=== PATIENT | male | born 1985 | race Caucasian/White ===

== ENCOUNTER 2020-07-21 13:35 | Outpatient (CLI) | payer OTHER, MEDICARE ==
[2020-07-21 14:21] VITALS: BP 127/84
--- NOTE | 2020-07-21 14:21 | SLEEP CARE CONSULTATION ---
Information from patient questionnaire entered by Mariel Abbasi. I have reviewed and concur with the information entered by Mariel Abbasi. This document represents the service I personally performed and the decisions made by me, Nimisha York ARNP. History of Present Illness Service Date and Time: 07/21/2020 1335 Reason for Visit: New patient Chief Complaint: reports: Unrefreshed sleep, Snoring, Excessive daytime sleepiness, Frequent awakenings at night. denies: Observed pauses in breathing Date of Onset: not very long Usual bedtime: varies 10-11:30 pm Time it takes to fall asleep: a couple hours Snores at night: Yes (not very much) Observed to quit breathing while asleep: No Sleeps alone due to snoring: Yes (lives with mom and dad) Number of times waking at night: varies, about 2 times Reasons for waking at night: reports: Snoring, Gasping for air, Bathroom, Other (also to get a drink) Toss, Turn, or Twitch while sleeping: No Recalls having dreams: Yes (sometimes) Usually gets out of bed at: varies, but 5 am on Mondays Feels refreshed in the morning: Yes Morning headache: No Sleepy or fatigued during the day: Yes Ever fallen asleep while driving: No (doesn't drive) Takes day naps: Yes (daily, time varies) Dreams during day naps: Yes (sometimes) Prior sleep studies: No Additional HPI information: I had the pleasure of seeing KENN HERNANDEZ today regarding the possibility of him having a sleep disorder. His current complaints are frequent night awakenings. He states that he sometimes can go back to sleep after waking up because he is still tired. He appears to be developmentally disabled and required repeated questions/explanations during the visit today. He is very cooperative with exam and history. He has a history of asthma but denies other medical problems. He states that both parents snore and are using machines at night for sleep apnea. - Parasomnia Symptoms Ever been unable to move upon waking from sleep: No Walks in sleep: Yes Talks in sleep: Yes Ever acted out dreams in sleep: No Ever felt weak in the knees when startled or emotional: No Bothered by creepy, crawly, restless sensations in legs: No Problems with memory or concentration: No Subjective Initial [place] Sleepiness Scale score: 8 (in 2019) Past Medical History Past Medical History: reports: Asthma. denies: Hypertension, Diabetes, Arrythmia Social History The patient's occupation is disabled. Patient is Single and lives in [place]. Have you smoked in the past 12 months: No Alcohol use: No Caffeine use: Yes Caffeine amount and frequency: 2-3 drinks a day Family History Family history of sleep disordered breathing: Yes (mom and dad) Family Hx Sleep Apnea: Mother: Snoring, Sleep apnea - Treated, Father: Snoring, Sleep apnea - Treated Allergies and Home Medications Drug allergies reviewed: Yes (NKDA) Home medication list reviewed: Yes (thyroid pill, losartan) Review of Systems Cardiovascular: denies: high blood pressure, irregular heart rate or pulse Respiratory: reports: shortness of breath (from asthma), wheeze (from asthma) Gastrointestinal: reports: heartburn, diarrhea (sometimes) Neurological: denies: headaches, head trauma Psychiatric: denies: anxiety, depression Ear/Nose/Throat: reports: wisdom teeth removed. denies: nasal congestion, sinus problems, nose bleeds, dry mouth/throat, injury to nose, tonsillectomy Endocrine: reports: sluggishness, too hot or cold Immunologic: reports: sneezing, rash, itching, allergies to food or environment (seafood) Physical Exam Blood Pressure: 127/84 Cuff size: wrist Heart Rate: 89 O2 Saturation: 98 Height: 5 ft 10 in Weight: 279 lb Body Mass Index: 40.0 BMI Classification: Morbidly Obese Neck circumference: 18.25 (inches) Nostrils: patent to airflow Mouth and throat: narrow oropharynx Uvula visualization: 25% Mallampati Class III Tongue: enlarged in size with teeth barfield on lateral edges Tonsils: 2+ Chin and jaw: normal size and position Heart: regular rate and rhythm Lungs: clear bilaterally Impression and Plan 1. Suspected Obstructive Sleep Apnea-Hypopnea Syndrome, as suggested by a history of loud and irregular snoring, frequent awakening during the night, unrefreshed sleep, cognitive impairment, and excessive daytime sleepiness. Patient appears to be developmentally disabled and would prefer to do a HST where his parents can help him with his test. I recommend proceeding to po lysomnography to confirm the diagnosis and to assess severity. If the patient has significant sleep disordered breathing, a manual CPAP titration study will also be performed to find the optimal treatment pressure. I informed the patient of what the sleep studies involve and after some discussion, obtained agreement to proceed. The pathophysiology of obstructive sleep apnea-hypopnea syndrome was discussed with the patient and health risks of cardiovascular and cerebrovascular disease if not treated. Patient doesn't drive. * Schedule polysomnography/HST. * Avoid sedative and muscle relaxant around bedtime. * Attempt to lose weight. * Review instructions provided by trained office staff on how to prepare for the sleep study. * Return for follow-up after sleep study completed. Visit Type: In Office Time Spent with Patient (minutes): 35 Provider Statement: I spent 100% of the Face to Face Visit with the patient with greater than 50% spent counseling the patient and coordination of care.
== END 2020-07-21 13:36 | disposition home or self-care (01) ==
LOC: SC 13:35
PROVIDERS: ATTEND Nurse Practitioner Family
DX: G47.10 Hypersomnia, unspecified (principal); R41.89 Other symptoms and signs involving cognitive functions and awareness; G47.8 Other sleep disorders; R06.83 Snoring; E66.01 Morbid (severe) obesity due to excess calories; Z68.41 Body mass index [BMI] 40.0-44.9, adult
CPT/HCPCS: 99203; 99212

== ENCOUNTER 2020-09-14 07:52 | Outpatient (CLI) | payer OTHER, MEDICARE | END 2020-09-14 07:53 | disposition home or self-care (01) | LOC: SC 07:52 | PROVIDERS: ATTEND Nurse Practitioner Family | DX: G47.8 Other sleep disorders (principal); R06.83 Snoring; E66.9 Obesity, unspecified; Z68.41 Body mass index [BMI] 40.0-44.9, adult | CPT/HCPCS: 95806 ==

== ENCOUNTER 2020-09-21 15:14 | Outpatient (CLI) | payer OTHER, MEDICARE ==
--- NOTE | 2020-09-21 15:42 | SLEEP CARE CONSULTATION ---
Information from patient questionnaire entered by Mariel Abbasi. I have reviewed and concur with the information entered by Mariel Abbasi. This document represents the service I personally performed and the decisions made by , Nimisha York ARNP. History of Present Illness Service Date and Time: 09/21/2020 1514 Initial [place] Sleepiness Scale score: 8 (in 2019) Current [place] Sleepiness Scale score: 8 Additional HPI information: KENN HERNANDEZ returns for follow up and results of the recently performed home sleep study. The patient was informed of the following findings: no significant sleep disordered breathing with an average AHI of 2.9 and dashawn oxygen saturation of 84%. He had 5.0 supine and 1.52 non-supine AHIs. This was not diagnostic due to loss of signal during the HST. Recommendation for an in lab test. I explained the pathophysiology behind obstructive sleep apnea. Patient does not have sleep apnea and was advised how weight gain could increase the risk of developing sleep apnea in the future. I strongly encouraged the patient to lose weight. Sleep Study - Results Type of Sleep Study: Home sleep study Prior sleep studies: No Polysomnography/Home Sleep Study results: Physician Impression: The quality of the study is poor due to frequent loss of air flow and pulse oximetry signals.. The length of the study is adequate (> 240 minutes). Please also see the tabulated and graphic data. 1. No significant sleep disordered breathing, with an AHI of 2.9/hr and dashawn SaO2 of 84%. During the study, the patient had 9 apneas (6 obstructive, 3 central, 0 mixed) and 4 hypopneas. The longest episode lasted 62.0 seconds. The respiratory events occurred more frequently during supine sleep (supine AHI was 5.0 and non-supine, 1.52). 2. Hypoxemia (ICD-10 R09.02), mild, with the lowest oxygen saturation of 84 % and 7.7 minutes with SaO2 under 90%. Baseline oxygen saturation was normal (Average oxygen saturation was 94%). Recommendation: Due to the significant data loss, this test is non-diagnostic. An in-laboratory polysomnography should be ordered. Allergies and Home Medications Home medication list reviewed: Yes (no changes) Review of Systems Review of systems same as previous: Yes (no changes) Physical Exam Heart Rate: 87 O2 Saturation: 96 Height: 5 ft 10 in Weight: 285 lb Body Mass Index: 40.8 BMI Classification: Morbidly Obese Impression and Plan 1. Suspected Obstructive Sleep Apnea-Hypopnea Syndrome, as suggested by a history of loud and irregular snoring, frequent awakening during the night, unrefreshed sleep, cognitive impairment, and excessive daytime sleepiness. Patient is developmentally delayed and repeats questions but seem to understand. He states he lives by himself. His HST was not diagnostic because we lost signal and we need to have him repeat the test in lab where a civilian technician can ensure the leads stay on during the study. I recommend proceeding to polysomnography to confirm the diagnosis and to assess severity. I reviewed with patient and obtained agreement to proceed. I also encouraged him to have his mother come into the office at his next visit. The pathophysiology of obstructive sleep apnea-hypopnea syndrome was discussed with the patient and health risks of cardiovascular and cerebrovascular disease if not treated. * Schedule polysomnography +- manual CPAP titration study and return in 1-2 weeks after the study to discuss result and initiate therapy. * Patient does not drive * Avoid sedative and muscle relaxant around bedtime. * Attempt to lose weight. * Review instructions provided by trained office staff on how to prepare for the sleep study. * Return for follow-up after sleep study completed. Counseling Topics: Weight loss health impact Visit Type: In Office Time Spent with Patient (minutes): 19 Provider Statement: I spent 100% of the Face to Face Visit with the patient with greater than 50% spent counseling the patient and coordination of care.
== END 2020-09-21 15:15 | disposition home or self-care (01) ==
LOC: SC 15:14
PROVIDERS: ATTEND Nurse Practitioner Family
DX: G47.10 Hypersomnia, unspecified (principal); R41.89 Other symptoms and signs involving cognitive functions and awareness; G47.8 Other sleep disorders; R06.83 Snoring; E66.01 Morbid (severe) obesity due to excess calories; Z68.41 Body mass index [BMI] 40.0-44.9, adult
CPT/HCPCS: 99212

== ENCOUNTER 2021-04-27 13:51 | Outpatient (CLI) | payer OTHER, MEDICARE ==
--- NOTE | 2021-04-27 14:52 | SLEEP CARE CONSULTATION ---
Information from patient questionnaire entered by Mariel Abbasi. I have reviewed and concur with the information entered by Mariel Abbasi. This document represents the service I personally performed and the decisions made by me, Nimisha York ARNP. History of Present Illness Service Date and Time: 04/27/2021 1351 Accompanied by: Mother Initial [place] Sleepiness Scale score: 8 (in 2019) Current [place] Sleepiness Scale score: 5 Additional HPI information: KENN HERNANDEZ returns with his mother for follow up and results of the recently performed polysomnography. Patient was unable to sleep more than 82.8 minutes during the night. Mother states he is very itchy and usually sleeps very restless during the night. They told her that he should return for a another sleep study to get more sleep but that he should probably have a sleep aid for the test. Sleep Study - Results Type of Sleep Study: Polysomnography ([facility]) Prior sleep studies: Yes Year and Where: 2020([facility]) - [facility] Sleep Polysomnography/Home Sleep Study results: This nocturnal polysomnographic sleep study showed no significant snoring. The apnea/hypopnea index was 6.5 and the sleep efficiency was 17.8%. The PLM index was 85.5. The sleep study is consistent with mild obstructive sleep apnea with significant desaturation events down to 80%. Given the history of chronic insomnia and the very low sleep efficiency which he reports as normal for him, would recommend the patient undergo a trial of auto CPAP or return to the sleep lab for a full-night CPAP titration study. Alternative therapies, including dental appliances and surgical procedures could also be considered. Attaining optimal weight is recommended. The EKG showed no significant arrhythmias. Patient only slept for 82.8 minutes for this study and needs to repeat study with a sleep aid to get more time for a more accurate measurement. Allergies and Home Medications Home medication list reviewed: Yes (albuterol sulfate inhaler, nebulizer too) Review of Systems Review of systems same as previous: Yes (no changes) Physical Exam Heart Rate: 87 O2 Saturation: 96 Height: 5 ft 10 in Weight: 281 lb Body Mass Index: 40.3 BMI Classification: Morbidly Obese Impression and Plan 1. Suspected Obstructive Sleep Apnea-Hypopnea Syndrome, as suggested by a history of loud and irregular snoring, frequent awakening during the night, unrefreshed sleep, cognitive impairment, and excessive daytime sleepiness. Patient's last study only had 82.8 minutes of sleep time. His study did show an average AHI of 6.5 which was interpreted as mild obstructive sleep apnea but he did not have an adequate amount of time of sleep during the study. It was recommended that he repeat the study with a sleep aid to help him to sleep l onger. His mother agrees. I will write a prescription for 5 mg of zolpidem for the night of his sleep study. I will reorder his sleep study and see him back here once he has completed that PSG. Patient and mother agreed to plan. Patient was encouraged to lose weight for their overall health and to reduce apneas. * Schedule polysomnography +- manual CPAP titration study and return in 1-2 weeks after the study to discuss result and initiate therapy. * Avoid long distance driving or driving when feeling sleepy. * Avoid alcohol, sedative and muscle relaxant around bedtime. * Attempt to lose weight. * Review instructions provided by trained office staff on how to prepare for the sleep study. * Return for follow-up after sleep study completed. Counseling Topics: Weight loss health impact Other Participants: Other (Mother) Time Spent with Patient (minutes): 20
== END 2021-04-27 13:52 | disposition home or self-care (01) ==
LOC: SC 13:51
PROVIDERS: ATTEND Nurse Practitioner Family
DX: G47.10 Hypersomnia, unspecified (principal); R06.83 Snoring; G47.8 Other sleep disorders; R41.89 Other symptoms and signs involving cognitive functions and awareness
CPT/HCPCS: 99212; 99213

== ENCOUNTER 2021-08-18 20:30 | Outpatient (CLI) | payer OTHER, MEDICARE | END 2021-08-18 20:31 | disposition home or self-care (01) | LOC: SC 20:30 | PROVIDERS: ATTEND Nurse Practitioner Family | DX: G47.33 Obstructive sleep apnea (adult) (pediatric) (principal); G47.61 Periodic limb movement disorder | CPT/HCPCS: 95810 ==

== ENCOUNTER 2021-09-01 10:20 | Outpatient (CLI) | payer OTHER, MEDICARE ==
[2021-09-01 10:57] VITALS: BP 149/92
--- NOTE | 2021-09-01 10:57 | SLEEP CARE CONSULTATION ---
Information from patient questionnaire entered by Eric Torres MA. I have reviewed and concur with the information entered by Eric Torres MA. This document represents the service I personally performed and the decisions made by , Nimisha York ARNP. History of Present Illness Service Date and Time: 09/01/2021 1020 Initial [place] Sleepiness Scale score: 8 (in 2019) Current [place] Sleepiness Scale score: 16 (2021) Additional HPI information: KENN HERNANDEZ returns with mother for follow up and results of the recently performed polysomnography. I explained the pathophysiology behind obstructive sleep apnea. We then spent q uite a bit of time discussing different treatment options. For mild obstructive sleep apnea, surgery and oral appliance are alternatives to nasal CPAP therapy but in moderate or severe cases, nasal CPAP is the most effective and reliable treatment. I reviewed the impact of weight changes on sleep apnea and strongly recommended losing weight. After some discussion, the patient opted to go with the nasal CPAP therapy. Nasal autoCPAP set at 4-15 cmH20 will be ordered with rationale explained. A manual titration study will be ordered if unable to find optimal pressure with office adjustments. I explained how CPAP machine works and what to expect when using the machine. Using CPAP every night in order to get used to it was emphasized. Patient advised to put CPAP mask on before getting into bed so as not to fall asleep without CPAP. To assist acclimation to CPAP use, it could also be used for a short time during day while reading or watching TV. The patient was instructed to call the CPAP supplier to discuss any mechanical problem that may occur. If the mask given is uncomfortable or is difficult to keep on through the night even with adjustment, contact the CPAP supplier as many will replace with another mask style if notified before 30 days. If snoring or perceives is not getting enough air or too much air from the machine, notify this office. Patient does not drink alcohol and does not drive. Sleep Study - Results Type of Sleep Study: Polysomnography ([facility]) Prior sleep studies: Yes Year and Where: 2020(T) - [facility] Sleep Polysomnography/Home Sleep Study results: IMPRESSION: The quality of the study is good. The patient had poor sleep efficiency due to sleep onset insomnia and frequent awakenings throughout the night. The sleep architecture was abnormal for sleep fragmentation and reduced amount of time spent in REM and slow wave sleep (N3). Respiratory monitoring showed mild obstructive sleep apnea-hypopnea (AHI = 9.5) associated with frequent arousals, oxyhemoglobin desaturation but no significant hypoxia (dashawn oxygen saturation of 90%). The patient did not sleep supine during this study (supine AHI = 0 ; nonsupine = 9.78). Snore was light to moderate in intensity. There was moderate periodic leg movement of sleep contributing to the sleep fragmentation.. Cardiac rhythm was normal sinus rhythm without significant arrhythmia. No abnormal behavior (parasomnia) observed during the night. Allergies and Home Medications Home medication list reviewed: Yes (no changes) Review of Systems Review of systems same as previous: Yes (no changes) Physical Exam Vital signs obtained and entered by: WILMAR MOSQUERA Blood Pressure: 149/92 (RIGHT, PULSE 83) Cuff size: wrist Heart Rate: 87 O2 Saturation: 98 (WITH 2 MASKS) Height: 5 ft 10 in Weight: 283 lb (CLOTHES) Body Mass Index: 40.6 BMI Classification: Morbidly Obese Impression and Plan 1. Obstructive Sleep Apnea-Hypopnea Syndrome, mild, with lowest oxygen saturation of 90%. Obviously this is the cause of the patients symptoms of unrefreshed sleep, and excessive daytime sleepiness. Positive pressure therapy could benefit asthma. As mentioned above, the patient will be started on nasal autoCPAP therapy with pressure set at 4-15 cmH2O. A manual titration study will be completed if unable to find optimal treatment pressure with office adjustments. Compliance guidelines also reviewed. A copy of compliance guidelines will be given for reference at check out. 2. Periodic limb movement, moderate, that did contribute to fragmentation patients sleep. Periodic limb movement of sleep (PLMS) is characterized by episodes of repetitive limb movements that occur during sleep and usually involve the lower limbs. The etiology is unknown but can be associated with restless leg syndrome (RLS), low serum ferritin level below 50 to 75mcg / L, neuropathy, spinal cord diseases, kidney disease, rheumatological disorders, narcolepsy, obstructive sleep apnea, and REM sleep behavior disorder. Sleep hygiene methods can also improve sleep as well as lifestyle changes such as regular exercise. Patient was advised that no treatment is needed at this time. If symptoms increase, then further evaluation is indicated. * Nasal auto CPAP therapy, pressure at 4-15 cm H2O. * Attempt to lose weight. * Avoid alcohol consumption near bedtime. * Avoid supine sleep until using CPAP. * The patient is again cautioned about driving until sleepiness completely resolves. * Return one month after CPAP obtained. I will assess response to therapy and compliance at that time. Counseling Topics: Weight loss health impact Visit Type: In Office Other Participants: Other (Mother) Time Spent with Patient (minutes): 20 Provider Statement: I spent 100% of the Face to Face Visit with the patient with greater than 50% spent counseling the patient and coordination of care.
== END 2021-09-01 10:21 | disposition home or self-care (01) ==
LOC: SC 10:20
PROVIDERS: ATTEND Nurse Practitioner Family
DX: G47.33 Obstructive sleep apnea (adult) (pediatric) (principal); G47.61 Periodic limb movement disorder; E66.01 Morbid (severe) obesity due to excess calories; Z68.41 Body mass index [BMI] 40.0-44.9, adult
CPT/HCPCS: 99212; 99213

== ENCOUNTER 2021-11-23 15:50 | Outpatient (CLI) | payer OTHER, MEDICARE ==
[2021-11-23 16:51] VITALS: BP 130/72
--- NOTE | 2021-11-23 16:51 | SLEEP CARE CONSULTATION ---
Information from patient questionnaire entered by Eric Quiñonez MA. I have reviewed and concur with the information entered by Eric Quiñonez MA. This document represents the service I personally performed and the decisions made by , Nimisha York ARNP. History of Present Illness Service Date and Time: 11/23/2021 1550 Previous diagnosis: Mild, Obstructive Sleep Apnea-Hypopnea Syndrome AHI: 9.5 Reason for follow up: first compliance (SET UP DATE 09/20/21, ) Equipment type: CPAP Equipment obtained from: [employer] Mask style: Full face Backup mask available: No (will keep old mask) Prior sleep studies: Yes Year and Where: 2020([facility] - [facility] Sleep Type of Sleep Study: Polysomnography ([facility]) HPI additional information: KENN HERNANDEZ was diagnosed to have mild, AHI 9.5, obstructive sleep apnea-hypopnea syndrome and returned today for CPAP therapy first compliance follow-up. Sleep Study - Results Type of Sleep Study: Polysomnography ([facility]) Prior sleep studies: Yes Year and Where: 2020([facility]) - [facility] Sleep CPAP Compliance Data - Data Reviewed with Patient Average duration of nightly device use: 2 HOURS 7 MINUTES Compliance rate %: 7 Current pressure setting (cmH2O): 4-15 (median 5.2, avg 10.8, max 11.9) Average residual AHI: 10.9 Central apnea: 5.5 Obstructive apnea: 0.0 Average large leak: 31.1 L/min Subjective Patient concerns: reports: mask discomfort, mask leak noise, other (water chamber heating up "too much"). denies: aerophagia, air blowing in eyes, condensation in mask/hose, nasal congestion, dry mouth, nose, throat, epistaxis Observed to snore while using device: No Current pressure setting perceived as: comfortable On therapy, patient: reports: sleeping better, more rested overall. denies: drowsiness while driving (doesn't drive) Initial [place] Sleepiness Scale score: 8 (in 2019) Current [place] Sleepiness Scale score: 21 Allergies and Home Medications Home medication list reviewed: Yes (no changes) Review of Systems Review of systems same as previous: Yes (no changes) Physical Exam Vital signs obtained and entered by: Adair QUIÑONEZ CMA AACT Blood Pressure: 130/72 (RESP 20, PULSE 89, LEFT,) Heart Rate: 92 O2 Saturation: 96 (PAPER) Height: 5 ft 10 in Impression and Plan 1. Obstructive Sleep Apnea-Hypopnea Syndrome, mild, with poor treatment compliance and fair apnea control. On CPAP therapy, the patient has better sleep quality and is more rested overall. Kenn is mentally disabled and comes in on his own. He tells me he puts on his mask every night and last night he wore it for 4 hours. I check his machine and it was 3 hours 57 minutes. The patients pressure will be changed to autoCPAP 10-12 cmH20 for elevation of residual AHI. Patient advised to contact me if pressure change is uncomfortable so that it can be adjusted. Goals for apnea control discussed. He also tells me that his machine gets too hot. He cannot tell me how hot it gets. I will write to have his machine serviced but in the meantime we turned off the humidifier element until it is checked. Patient's apnea severity and rationale for treatment to reduce apnea, improve sleep quality and reduce cardiovascular and cerebrovascular events was reviewed. I also reviewed the benefit of consistent device use of CPAP for asthma. 2. Obesity, unspecified. Currently patients BMI is 40.6. Obesity increases the risk of apnea, CPAP pressure requirements and overall health risks especially cardiovascular and diabetes. Thus patient is advised to try to lose weight. * Change auto CPAP pressure to 10-12 cmH2O * Notify me if snoring with mask or feeling that the pressure is too much or too little * Attempt to lose weight * Call this office if any problems using CPAP * Return for follow up in 1-2 months, or sooner if concerns arise Counseling Topics: Spare mask, Weight loss health impact Visit Type: In Office Time Spent with Patient (minutes): 26 Provider Statement: I spent 100% of the Face to Face Visit with the patient with greater than 50% spent counseling the patient and coordination of care.
== END 2021-11-23 15:51 | disposition home or self-care (01) ==
LOC: SC 15:50
PROVIDERS: ATTEND Nurse Practitioner Family
DX: G47.33 Obstructive sleep apnea (adult) (pediatric) (principal); E66.9 Obesity, unspecified; Z68.41 Body mass index [BMI] 40.0-44.9, adult
CPT/HCPCS: 99212; 99213

== ENCOUNTER 2021-12-28 16:05 | Outpatient (CLI) | payer OTHER, MEDICARE ==
[2021-12-28 16:59] VITALS: BP 132/78
--- NOTE | 2021-12-28 16:59 | SLEEP CARE CONSULTATION ---
Information from patient questionnaire entered by Eric Torres MA. I have reviewed and concur with the information entered by Eric Torres MA. This document represents the service I personally performed and the decisions made by , Nimisha York ARNP. History of Present Illness Service Date and Time: 12/28/2021 1605 Previous diagnosis: Mild, Obstructive Sleep Apnea-Hypopnea Syndrome AHI: 9.5 (in 2021) Reason for follow up: one month (PRESSURE CHANGE, RESMED,) Accompanied by: Father Equipment type: CPAP Equipment obtained from: [employer] (getting supplies) Mask style: Nasal Mask brand: Respironics ([employer]) Backup mask available: No (needs to keep old mask when replaced) Prior sleep studies: Yes Year and Where: 2020([facility]) - [facility] Type of Sleep Study: Polysomnography ([facility]) HPI additional information: KENN HERNANDEZ is a mentally disabled man who was diagnosed to have mild, AHI 9.5, obstructive sleep apnea-hypopnea syndrome and returned today for CPAP therapy one month with pressure change follow-up. He was accompanied to the appointment by his father today. Sleep Study - Results Type of Sleep Study: Polysomnography ([facility]) Prior sleep studies: Yes Year and Where: 2020([facility]) - [facility] CPAP Compliance Data - Data Reviewed with Patient Average duration of nightly device use: 4 HOURS 53 MINUTES Compliance rate %: 77 (30 days; used 29/30 days) Current pressure setting (cmH2O): 10-12 Average residual AHI: 4.7 Central apnea: .1 Obstructive apnea: .3 Average large leak: 50.8 Subjective Missed days of use due to: reports: illness (cold) Patient concerns: denies: aerophagia, mask discomfort, air blowing in eyes, mask leak noise, condensation in mask/hose, nasal congestion, dry mouth, nose, throat, epistaxis, other Observed to snore while using device: No Current pressure setting perceived as: comfortable On therapy, patient: reports: sleeping better, more rested overall. denies: drowsiness while driving (doesn't drive) Initial [place] Sleepiness Scale score: 8 (in 2019) Current [place] Sleepiness Scale score: 19 (12/2021) Allergies and Home Medications Home medication list reviewed: Yes (no changes) Review of Systems Review of systems same as previous: Yes (no changes) Physical Exam Vital signs obtained and entered by: WILMAR MOSQUERA Blood Pressure: 132/78 (PULSE 103, RESP 20, LEFT, ) Cuff size: wrist Heart Rate: 106 O2 Saturation: 98 (PAPER MASK) Height: 5 ft 10 in Weight: 280 lb (CLOTHES) Weight change since last visit: TRYING TO LOSE, Body Mass Index: 40.1 BMI Classification: Morbidly Obese Impression and Plan 1. Obstructive Sleep Apnea-Hypopnea Syndrome, mild, with good treatment compliance and good apnea control. Patient is a mentally disabled man who states he feels as if he is more rested when he uses his CPAP. His father who accompanies him states he normally does not see him through the day so does not know if he is sleeping less often during the daytime. He has been compliant at 77% for the last 30 days and his residual AHI is at 4.7. No pressure changes needed at this time. Patient denies problems with oral dryness, nasal congestion, epistaxis, skin irritation or aerophagia. I will have him follow-up in about 3 months. Patient's apnea severity and rationale for treatment to reduce apnea, improve sleep quality and reduce cardiovascular and cerebrovascular events was reviewed. I also reviewed the benefit of consistent device use of CPAP for asthma. 2. Obesity, unspecified. Currently patients BMI is 40.1. Obesity increases the risk of apnea, CPAP pressure requirements and overall health risks especially cardiovascular and diabetes. Thus patient is advised to lose weight. * Continue auto CPAP pressure at 10-12 cmH2O * Notify me if snoring with mask or feeling that the pressure is too much or too little * Attempt to lose weight * Call this office if any problems using CPAP * Return for follow up in 3 months, or sooner if concerns arise Counseling Topics: Spare mask, Weight loss health impact Visit Type: In Office Time Spent with Patient (minutes): 20 Provider Statement: I spent 100% of the Face to Face Visit with the patient with greater than 50% spent counseling the patient and coordination of care.
== END 2021-12-28 16:06 | disposition home or self-care (01) ==
LOC: SC 16:05
PROVIDERS: ATTEND Nurse Practitioner Family
DX: G47.33 Obstructive sleep apnea (adult) (pediatric) (principal); E66.01 Morbid (severe) obesity due to excess calories; Z68.41 Body mass index [BMI] 40.0-44.9, adult
CPT/HCPCS: 99212; 99213

== ENCOUNTER 2022-12-06 16:31 | Outpatient (CLI) | payer OTHER, MEDICARE | END 2022-12-06 16:32 | disposition home or self-care (01) | LOC: RT 16:31 | PROVIDERS: ATTEND Internal Medicine | DX: I10 Essential (primary) hypertension (principal) | CPT/HCPCS: 93005 ==

== ENCOUNTER 2022-12-08 15:54 | Outpatient (CLI) | payer OTHER, MEDICARE ==
--- NOTE | 2022-12-08 16:34 | SLEEP CARE CONSULTATION ---
Information from patient questionnaire entered by Shante Hung. I have reviewed and concur with the information entered by Shante Hung. This document represents the service I personally performed and the decisions made by me, Nimisha York ARNP. History of Present Illness Service Date and Time: 12/08/2022 1554 Previous diagnosis: Mild, Obstructive Sleep Apnea-Hypopnea Syndrome AHI: 9.5 Reason for follow up: other (8 MONTH F/U) Accompanied by: Father Equipment type: CPAP (RESMED Airsense 11, s/u 09/2021) Equipment obtained from: [employer] (getting supplies) Mask style: Nasal Mask brand: Respironics ([employer]) Backup mask available: No (will keep old mask when replaced) Last cushion change: 1 year Prior sleep studies: Yes Year and Where: 2020([facility]) - [facility] Sleep Type of Sleep Study: Polysomnography ([facility]) HPI additional information: KENN HERNANDEZ was diagnosed to have mild, AHI 9.5, obstructive sleep apnea-hypopnea syndrome and returned with father today because he is mentally challenged for CPAP therapy 8 months follow-up. Sleep Study - Results Type of Sleep Study: Polysomnography ([facility]) Prior sleep studies: Yes Year and Where: 2020([facility]) - [facility] CPAP Compliance Data - Data Reviewed with Patient Average duration of nightly device use: 5 HRS 58 MIN Compliance rate %: 84 (06/10/2022-12/06/22; 170/180 days used) Current pressure setting (cmH2O): 10-12 Average residual AHI: 3.0 Central apnea: 0 Obstructive apnea: 0.1 Subjective Patient concerns: denies: aerophagia, mask discomfort, air blowing in eyes, mask leak noise, condensation in mask/hose, nasal congestion, dry mouth, nose, throat, epistaxis Observed to snore while using device: No Current pressure setting perceived as: comfortable On therapy, patient: reports: sleeping better, awakening more refreshed, being more awake and alert during the day, more rested overall. denies: drowsiness while driving Initial [place] Sleepiness Scale score: 8 (in 2019) Current [place] Sleepiness Scale score: 3 (12/08/22) Allergies and Home Medications Known drug allergies: No Drug allergies reviewed: Yes Home medication list reviewed: Yes (no changes) Allergy and home medication list: Medications: Metoprolol Losartan Montelukast Review of Systems Review of systems same as previous: Yes (Retina tear had surgery; eye surgery to remove oil 12/25/22) Physical Exam Vital signs obtained and entered by: SHANTE Palma MA Blood Pressure: 134/84 Cuff size: regular Heart Rate: 98 O2 Saturation: 89 Height: 5 ft 10 in Weight: 280 lb 12.8 oz Body Mass Index: 40.3 BMI Classification: Morbidly Obese Impression and Plan 1. Obstructive Sleep Apnea-Hypopnea Syndrome, mild, with good treatment compliance and good apnea control. On CPAP therapy, the patient has better sleep quality and is more rested overall. Patient has significant improvement of their sleep apnea and is satisfied with current CPAP therapy. Patient denies problems with oral dryness, nasal congestion, epistaxis, skin irritation or aerophagia. Patient's apnea severity and rationale for treatment to reduce apnea, improve sleep quality and reduce cardiovascular and cerebrovascular events was reviewed. I also reviewed the benefit of consistent device use of CPAP for asthma. 2. Obesity unspecified. Currently patients BMI is 40.3. He exercises on a elliptical machine. Obesity increases the risk of apnea, CPAP pressure requirements and overall health risks especially cardiovascular and diabetes. Thus patient is advised to lose weight. * Continue auto CPAP pressure at 10-12 cmH2O * Notify me if snoring with mask or feeling that the pressure is too much or too little * Attempt to lose weight * Call this office if any problems using CPAP * Return for follow up in 1 year, or sooner if concerns arise Counseling Topics: Spare mask, Weight loss health impact Visit Type: In Office Time Spent with Patient (minutes): 20 Provider Statement: I spent 100% of the Face to Face Visit with the patient with greater than 50% spent counseling the patient and coordination of care.
[2022-12-08 16:58] VITALS: BP 134/84
== END 2022-12-08 15:55 | disposition home or self-care (01) ==
LOC: SC 15:54
PROVIDERS: ATTEND Nurse Practitioner Family
DX: G47.33 Obstructive sleep apnea (adult) (pediatric) (principal); E66.01 Morbid (severe) obesity due to excess calories; Z68.41 Body mass index [BMI] 40.0-44.9, adult
CPT/HCPCS: 99212; 99213